=== PATIENT | male | born 1960 | race Caucasian/White ===

== ENCOUNTER → 2020-05-22 | Outpatient (CLI) | payer BC ==
[~2020-05-22] MED LIST: HOLD METFORMIN - RECEIVED CONTRAST 20 ML VIAL IV SCH; IOHEXOL 350 MG/ML 100 ML (OMNIPAQUE 350) VIAL IV ONE; NS 100 ML (IVPB) BAG IV ONE; TRAM-21 PO
--- NOTE | 2020-05-22 11:18 | Diagnostic Imaging Report ---
PROCEDURE: CT abdomen with contrast only. TECHNIQUE: Multiple contiguous axial images were obtained through the abdomen after the administration of intravenous contrast. Auto Exposure Controls were utilized during the CT exam to meet ALARA standards for radiation dose reduction. INDICATION: Severe right upper quadrant pain postprandial symptoms of 3 days duration. I have no relevant comparison. FINDINGS: There is a focal inflammatory process in the right lower quadrant medial to the cecum along its mesenteric border with few adjacent subcentimeter reactive mesenteric lymph nodes. This is separable from the air-containing normal appendix. This shows some peripheral enhancing material and centrally shows a complex low density fluidlike attenuation. The lesion itself measures 2.5 cm transverse by 1.9 cm AP. Its medial to and separable from the right colon as well as being separable from all the regional normal-appearing small bowel loops segments. Along its inferior margin there is a fatty component and this may reflect a liquefied mesenteric/omental infarct. No obvious volvulation of that structure. Infected mesenteric inclusion cyst would be an additional consideration. This does not have a morphology suggestive of a liquefied necrotic lymph node. There is no free air. There is no free fluid. The remaining small and large bowel of the abdomen appeared normal. The adrenals are negative. The pancreas negative. There is no hydronephrosis. There is a small cyst off the upper pole of the right kidney. The liver, gallbladder and bile ducts normal. The spleen is negative. The aorta and mesenteric vessels were all patent. IMPRESSION: Focal inflammatory process right lower quadrant along the mesenteric border medial to the normal cecum and well separable from the normal appendix as well as separable from any regional small bowel loop. May very well merely reflect a liquefied area of mesenteric fatty/omental infarct with few adjacent reactive lymph nodes. Mark abscess could not be excluded but its etiology or cause is not demonstrated. There is no resultant bowel, biliary or urinary tract obstruction aside from a benign renal cyst. The study is otherwise normal. Consider conservative management and short-term follow-up within one to 2 weeks' time assuming the absence of any adverse interval clinical change. Dictated by: Dictated on workstation # [id number]
== END ==
LOC: RAD 09:43
PROVIDERS: ATTEND Family Medicine
DX: J01.90 Acute sinusitis, unspecified (principal); R10.11 Right upper quadrant pain; R10.13 Epigastric pain; R05 Cough; R09.81 Nasal congestion; R09.82 Postnasal drip; Z23 Encounter for immunization
CPT/HCPCS: 74160

== ENCOUNTER → 2020-06-27 | Outpatient (CLI) | payer BC ==
--- NOTE | 2020-06-27 08:35 | Diagnostic Imaging Report ---
EXAMINATION: CT Abdomen and Pelvis with intravenous contrast. TECHNIQUE: Multiple contiguous axial images were obtained through the abdomen and pelvis after the uneventful administration of intravenous contrast. All CT scans use one or more of the following dose optimizing techniques: automated exposure control, MA and/or KvP adjustment based on a patient size and exam type, or iterative reconstruction. HISTORY: Right upper quadrant pain. COMPARISON: 05/22/2020. FINDINGS: Limited views of the lower thorax are unremarkable. The liver is normal without focal lesion. There is no biliary ductal dilation. Gallbladder is normal. Pancreas is normal. Spleen is normal. Adrenal glands are normal. There is a simple cyst in the right kidney. No suspicious renal lesions are seen. There is no hydronephrosis. Urinary bladder is normal. Visualized bowel is normal in caliber without obstruction or inflammation. No free fluid or air. The previously seen inflamed nodule in the mesocolon in the right lower quadrant appears improved with a 1.7 cm nodule remaining but no surrounding inflammatory signs on CT. The adjacent lymph nodes are 5 mm and smaller. The terminal ileum appears normal without wall thickening. Aorta is normal in caliber without aneurysm. There are no suspicious osseus lesions. IMPRESSION: 1. Resolution of the inflammation in the mesocolon adjacent to the cecum with a persistent 17 mm nodule. This may reflect sequela of mesenteric adenitis, as there is no evidence of active bowel inflammation as a source of suppurative adenopathy on the prior exam. The other differential would be a carcinoid tumor. Therefore, a short-term follow-up in 2-3 months is recommended. If the nodule is not decreased in size by that time, consideration should be given to resection. Dictated by: Dictated on workstation # [id number]
== END ==
LOC: RAD 07:35
PROVIDERS: ATTEND Family Medicine
DX: K65.1 Peritoneal abscess (principal); K85.80 Other acute pancreatitis without necrosis or infection; M79.671 Pain in right foot
CPT/HCPCS: 74177

== ENCOUNTER → 2020-09-27 | Outpatient (CLI) | payer BC ==
[2020-09-27 09:02] LABS: BUN/CREATININE RATIO 16; CREATININE SERUM 0.93 MG/DL (0.60-1.30); GFR ESTIMATED > 60
--- NOTE | 2020-09-27 10:04 | Diagnostic Imaging Report ---
PROCEDURE: CT abdomen and pelvis with contrast. TECHNIQUE: Multiple contiguous axial images were obtained through the abdomen and pelvis after administration of intravenous contrast. Auto Exposure Controls were utilized during the CT exam to meet ALARA standards for radiation dose reduction. All CT scans use one or more of the following dose optimizing techniques: automated exposure control, MA and/or KvP adjustment based on patient size and exam type or iterative reconstruction. INDICATION: Lung nodule. Compared with study 06/27/2020. FINDINGS: Nodule medial to the cecum substantially decreased in size today measuring 10 mm x 9 mm previously 17 mm x 15 mm. No new pericecal nodule. The appendix appeared normal. The cecal wall not thickened and no edema or acute infiltration of the adjacent mesial colon. No bowel, biliary or urinary tract obstruction. Liver, gallbladder, spleen, adrenals, and pancreas unremarkable. A benign cyst off the upper pole of the right kidney stable. Aortoiliac vessels patent and nonaneurysmal. Prostate, seminal vesicles and urinary bladder normal. No ascites. IMPRESSION: Substantial reduction in size of right lower quadrant mesenteric nodule most consistent with a resolving benign process. No acute appearing abnormality and no adverse development. Dictated by: Dictated on workstation # [id number]
== END ==
LOC: RAD 08:35
PROVIDERS: ATTEND Surgery
DX: R91.1 Solitary pulmonary nodule (principal)
CPT/HCPCS: 36415; 74177; 82565; 84520

== ENCOUNTER → 2020-12-30 | Outpatient (CLI) | payer BC ==
[~2020-12-30] VITALS: Ht 180.3 cm; Wt 100.0 kg
[~2020-12-30] MED LIST changes: +BAMLANIVIMAB (NON FORM) 700 MG in NS (IVPB) 250 ML IV ONE; +EPINEPHrine INJECTION 1 MG/ML AMP IM PRN; -HOLD METFORMIN - RECEIVED CONTRAST 20 ML VIAL IV SCH; -IOHEXOL 350 MG/ML 100 ML (OMNIPAQUE 350) VIAL IV ONE; -NS 100 ML (IVPB) BAG IV ONE; +diphenhydrAMINE 50 MG/ML INJ (BENADRYL) IV PRN
[2020-12-30 11:54] VITALS: BP 126/77
[2020-12-30 14:11] VITALS: BP 100/66
== END ==
LOC: INFUSION 12:04
PROVIDERS: ATTEND Nurse Practitioner Family
DX: U07.1 COVID-19 (principal)